=== PATIENT | female | born 1950 | race Caucasian/White ===

== ENCOUNTER 2018-04-15 08:40 | Day surgery (SDC) | payer MEDICARE, MEDICAID ==
[2018-04-09 15:26] LABS: CLARITY,URINE CLOUDY (Clear); COLOR,URINE YELLOW (Yellow); GLUCOSE, URINE NEGATIVE (Neg); KETONES,URINE NEGATIVE (Neg); LEUKOCYTE ESTERASE ,URINE LARGE (Neg); NITRITES, URINE NEGATIVE (Neg); OCCULT BLOOD,URINE SMALL (Neg); PROTEIN,URINE NEGATIVE (Neg); UA COLLECTION TYPE CLN CATCH MIDSTREAM; UROBILINOGEN,URINE 0.2 E.U/dL (0.2-1.0)
[2018-04-09 15:26] LABS: BASOPHILS # (AUTO) 0.1 X10'3 (0-0.2); BASOPHILS % (AUTO) 0.7 % (0-1); EOSINOPHILS # (AUTO) 0.3 X10'3 (0-0.9); LYMPHOCYTES # (AUTO) 1.6 X10'3 (1.1-4.8); LYMPHOCYTES % (AUTO) 18.4 % (21-51); MEAN CORPUSCULAR HEMOGLOBIN 30.3 PG (27.0-31.0); MEAN CORPUSCULAR HGB CONC 33.7 % (33.0-36.5); MEAN CORPUSCULAR VOLUME 90.1 FL (78-98); MEAN PLATELET VOLUME 9.1 FL (7.4-10.4); MONOCYTES # (AUTO) 0.6 X10'3 (0-0.9); NEUTROPHILS # (AUTO) 5.9 X10'3 (1.8-7.7); NEUTROPHILS % (AUTO) 69.9 % (42-75); PRE OP HEMATOCRIT 40.6 % (35.0-45.0); PRE OP HEMOGLOBIN 13.7 g/dL (12.0-16.0); PRE OP PLATELET COUNT 247 X10'3 (140-440); RED BLOOD COUNT 4.51 X10'6 (4.20-5.60); RED CELL DISTRIBUTION WIDTH 12.3 % (11.5-14.5)
[2018-04-09 15:35] LABS: BACTERIA,URINE 2+ /HPF (Neg); MUCUS STRANDS MODERATE /LPF (Neg); SQUAMOUS EPITHELIAL CELL,UR MANY /LPF (FEW)
[2018-04-09 15:36] LABS: WBC,URINE 20-30 /HPF (0-4)
[2018-04-09 15:47] LABS: ALBUMIN 3.8 G/DL (3.4-5.0); ALBUMIN/GLOBULIN RATIO 1.2 (1.1-1.5); ALKALINE PHOSPHATASE 69 IU/L (46-116); BLOOD UREA NITROGEN 20 MG/DL (7-18); BUN/CREATININE RATIO 23.5 (6.6-38.0); CALCIUM 8.8 MG/DL (8.5-10.1); CHLORIDE 104 MMOL/L (99-107); CREATININE 0.85 MG/DL (0.40-0.90); PRE OP ALT 20 U/L (30-65); PRE OP ANION GAP 8 (8-16); PRE OP AST 16 U/L (10-37); PRE OP BILIRUB, TOTAL 0.8 MG/DL (0.0-1.0); PRE OP GLUCOSE 89 MG/DL (70-104); PRE OP POTASSIUM 4.2 MMOL/L (3.4-5.1); PRE OP SODIUM 140 MMOL/L (135-145); TOTAL PROTEIN 6.9 G/DL (6.4-8.2); eGFR 67 ML/MIN
[~2018-04-15] VITALS: Ht 160 cm; Wt 87.4 kg
[2018-04-15] VITALS (8 sets, daily range): BP systolic 119–152; BP diastolic 48–78
[~2018-04-15 08:40] MED LIST: Cefazolin 2GM/50ML dext iso,osmotic IVPB IV ONE; LIONS MANE PO; NAPR220C15 PO; [UNRECOGNIZED DRUG - OTHER] PO; famotidine 20mg tablet PO ONE; ringers solution, lacted 1,000 ML IV SCH
[2018-04-15] MEDS ORDERED: ringers solution, lacted 1,000 ML IV SCH (10:03)
[2018-04-15] MEDS ORDERED: HYDROmorphone 1 mg/ml syringe IV PRN ×2 (10:05)
[2018-04-15] MEDS ORDERED: ondansetron/PF 4mg/2ml inj IV PRN (10:05)
[2018-04-15] MEDS ORDERED: meperidine/PF 25mg/ml syringe IV PRN ×3 (10:05)
[2018-04-15] MEDS ORDERED: proCHLORperazine 10 MG/2 ml inj IV PRN (10:05)
[2018-04-15] MEDS ORDERED: fentaNYL/PF 50MCG/1 ML 2ML syringe ONE (11:54)
[2018-04-15] MEDS ORDERED: glycopyrrolate 0.2mg/ml inj ONE (11:54)
[2018-04-15] MEDS ORDERED: midazolam 2 mg/2 ml injection ONE (11:54)
[2018-04-15] MEDS ORDERED: sevoflurane 250ml liquid IH ONE (11:54)
[2018-04-15] MEDS ORDERED: dexamethasone sod phosphate 4mg/ml inj. ONE (12:30)
[2018-04-15] MEDS ORDERED: ondansetron/PF 4mg/2ml inj ONE (12:31)
[2018-04-15] MEDS ORDERED: rocuronium 10mg/ml inj IV ONE (12:32)
[2018-04-15] MEDS ORDERED: propofol inj 20 ML IV ONE (12:32)
[2018-04-15] MEDS ORDERED: neostigmine methylsulfate 1 MG/ML 10ml vial ONE (12:34)
[2018-04-15] MEDS ORDERED: traMADol 50MG tablet PO ONE (13:25)
== END 2018-04-15 14:00 | disposition home or self-care (01) ==
LOC: PAS 08:40
PROVIDERS: ATTEND Surgery
DX: K80.10 Calculus of gallbladder with chronic cholecystitis without obstruction (principal); K66.0 Peritoneal adhesions (postprocedural) (postinfection); J45.998 Other asthma; F41.8 Other specified anxiety disorders; F32.9 Major depressive disorder, single episode, unspecified; E66.9 Obesity, unspecified; M19.90 Unspecified osteoarthritis, unspecified site; Z88.3 Allergy status to other anti-infective agents; Z88.1 Allergy status to other antibiotic agents; Z88.5 Allergy status to narcotic agent; Z88.6 Allergy status to analgesic agent; Z90.13 Acquired absence of bilateral breasts and nipples; Z90.710 Acquired absence of both cervix and uterus; Z68.34 Body mass index [BMI] 34.0-34.9, adult; Z79.899 Other long term (current) drug therapy; Z98.890 Other specified postprocedural states
CPT/HCPCS: 36415; 47562; 80053; 81001; 85025; 93005; A6251; J0690; J1100; J2250; J2405; J2704; J2710; J3010; J3490; J7120; A7000; J1170